=== PATIENT | male | born 1970 | race Asian ===

== ENCOUNTER → 2016-11-23 | Outpatient (CLI) | payer BC ==
[~2016-11-23] MED LIST: ALPH200C6 PO; BETA2500 PO; CLAR1TAB2 PO; FISH1000 PO; LORT1TAB PO; MELO15TA4 PO; TIZA4CAP3 PO; VITA-130 PO; [UNRECOGNIZED DRUG - CODE] PD
--- NOTE | 2016-11-24 04:31 | REP ---
Clinical: Right-sided palpable neck mass. Technique: Real time alcaraz scale and color evaluation using linear high frequency transducer. Findings: Directed ultrasound examination along the right side of the neck at the region of palpable mass demonstrates multiple lymph nodes measuring up to 3.1 x 1.0 x 1.9 cm. No fluid collection or discrete mass lesion. Impression: Palpable mass corresponds to moderately enlarged lymph nodes. Correlation with health assessment and follow up may be warranted. Signed by Bart Lane MD 11/24/2016 04:23 A
== END ==
LOC: M LRY 13:50
PROVIDERS: ATTEND Family Medicine
DX: R59.0 Localized enlarged lymph nodes (principal)

== ENCOUNTER → 2017-01-04 | Outpatient (REF) | payer BC | LOC: M SFHCLERA 16:40 | PROVIDERS: ATTEND Family Medicine | DX: L57.0 Actinic keratosis (principal); L90.8 Other atrophic disorders of skin ==

== ENCOUNTER → 2017-02-08 | Outpatient (REF) | payer BC ==
[~2017-02-08] MED LIST changes: -VITA-130 PO; +VITA500T PO
== END ==
LOC: M SFHCLERA 09:58
PROVIDERS: ATTEND Family Medicine
DX: D23.5 Other benign neoplasm of skin of trunk (principal)